=== PATIENT | female | born 1965 | race Caucasian/White ===

== ENCOUNTER 2021-02-15 09:50 | Emergency (ER) | payer OTHER ==
[~2021-02-15] VITALS: Ht 157.5 cm; Wt 109.1 kg
[~2021-02-15 09:50] MED LIST: AMOXICILLIN 8751 TAB PO; NORCO 325 MG-51 TAB PO; ZOFRAN 4MG T4 MG/TAB PO
[2021-02-15 10:06] VITALS: TEMP 98.6
[2021-02-15] MEDS ORDERED: AMOXICILLIN 8751 TAB PO (14:00)
[2021-02-15] MEDS ORDERED: NORCO 325 MG-51 TAB PO (14:27)
[2021-02-15 15:15] VITALS: BP 138/89; PULSE 76
== END 2021-02-15 15:20 | disposition home or self-care (01) ==
LOC: COL.ER 09:50
DX: S61.451A Open bite of right hand, initial encounter (principal); S61.252A Open bite of right middle finger without damage to nail, initial encounter; S61.452A Open bite of left hand, initial encounter; S61.255A Open bite of left ring finger without damage to nail, initial encounter; W54.0XXA Bitten by dog, initial encounter

== ENCOUNTER → 2021-02-21 | Outpatient (CLI) | payer OTHER ==
[2021-02-21 14:30] VITALS: BP 148/88; PULSE 88; TEMP 97.9
== END ==
LOC: COL.ER 14:11
DX: Z48.02 Encounter for removal of sutures (principal)

== ENCOUNTER → 2021-02-28 | Emergency (ER) | payer OTHER ==
[2021-02-28 16:08] VITALS: BP 116/78; PULSE 70; TEMP 97.9
== END ==
LOC: COL.ER 15:47
DX: Z48.02 Encounter for removal of sutures (principal)

== ENCOUNTER → 2022-05-22 | Outpatient (CLI) | payer OTHER | LOC: MC.RAD 07:00 | DX: Z12.31 Encounter for screening mammogram for malignant neoplasm of breast (principal) ==